=== PATIENT | female | born 1970 | race Caucasian/White ===

== ENCOUNTER 2018-11-02 12:08 | Emergency (ER) | payer SELFPAY ==
[2018-11-02 12:14] VITALS: BP 152/83; PULSE 52; RESP 18; TEMP 98.2; O2SAT 99
--- NOTE | 2018-11-02 12:40 | C.PDOC ---
History Of Present Illness 48 year old female presents to ED with complaint of right ankle/foot pain that began [employer]. Patient states that she mis-stepped and now has pain to the back of the foot. Patient states that pain is worse with movement. She denies weakness or numbness. R ANKLE /FOOT PAIN ONSET [employer]. PS MISSTEPPED NOW PAIN BACK OF FOOT. WORSE W MOV[facility] ENT. DENIES OTHER ASSOC SX EXAM NAD EXT R FOOT AROM WO DIFF, +ASSOC PAIN. NO SWELL DEFORM FOCAL TEND SKIN INTACT Time Seen by Provider: 11/02/18 12:17 Chief Complaint (Nursing): Lower Extremity Problem/Injury History Per: Patient History/Exam Limitations: no limitations Onset/Duration Of Symptoms: Hrs Current Symptoms Are (Timing): Still Present - Ankle/Foot Description Of Injury: Other (mis-stepped) Past Medical History Reviewed: Historical Data, Nursing Documentation, Vital Signs Vital Signs: Last Vital Signs Temp 98.2 F 11/02/18 12:10 Pulse 52 L 11/02/18 12:10 Resp 18 11/02/18 12:10 BP 152/83 H 11/02/18 12:10 Pulse Ox 99 11/02/18 12:10 Primary Care Provider: FAMILY PROVIDER,NO - Medical History PMH: No Chronic Diseases Surgical History: No Surg Hx Family History: States: Unknown Family Hx - Social History Hx Alcohol Use: No Hx Substance Use: No - Immunization History Hx Tetanus Toxoid Vaccination: No Hx Influenza Vaccination: No Hx Pneumococcal Vaccination: No Review Of Systems Except As Marked, All Systems Reviewed And Found Negative. Musculoskeletal: Positive for: Foot Pain (right ankle/foot pain) Physical Exam - Physical Exam Appears: Well, Non-toxic, No Acute Distress Skin: Normal Color, Warm, Dry, No Rash Head: Atraumatic, Normacephalic Neck: Normal ROM, Supple Chest: Symmetrical, No Deformity Cardiovascular: Rhythm Regular, No Murmur Respiratory: No Accessory Muscle Use, No Rales, No Rhonchi, No Wheezing Gastrointestinal/Abdominal: Soft, No Tenderness Extremity: Normal ROM, No Tenderness, Capillary Refill (<2 seconds), No Deformity, No Swelling, Other ( (+) associated pain to the right foot) Extremity: Bilateral: Normal Color And Temperature, Normal ROM Pulses: Left Dorsalis Pedis: Normal, Right Dorsalis Pedis: Normal Neurological/Psych: Oriented x3, Normal Speech, Normal Cognition, Normal Motor, Normal Sensation Gait: Steady ED Course And Treatment O2 Sat by Pulse Oximetry: 99 (in RA) Pulse Ox Interpretation: Normal - Other Rad r ankle X-Ray: Interpreted by Me (NEG) R FOOT X-Ray: Interpreted by Me (NEG) Progress Note: Right foot and right ankle x-ray ordered for patient. Patient given Motrin and tylenol. Disposition Counseled Patient/Family Regarding: Studies Performed, Diagnosis, Need For Followup, Rx Given - Disposition Referrals: Mary Ferrer DPM [Staff Provider] - Disposition: HOME/ ROUTINE Disposition Time: 12:47 Condition: IMPROVED Prescriptions: Acetaminophen [Tylenol Extra Strength] 2 tab PO Q6 #30 tablet Ibuprofen [Motrin] 600 mg PO Q6 #30 tab Instructions: Ankle Sprain (DC) Forms: [employer] (Korean) - Clinical Impression Clinical Impression: Achilles tendon sprain - Scribe Statement The provider has reviewed the documentation as recorded by the Scribe (Stefanie Dougherty) All medical record entries made by the Scribe were at my direction and personally dictated by me. I have reviewed the chart and agree that the record accurately reflects my personal performance of the history, physical exam, medical decision making, and the department course for this patient. I have also personally directed, reviewed, and agree with the discharge instructions and disposition. Orthopedic Care Application Of:: Ankle Air Cast
--- NOTE | 2018-11-02 13:43 | RAD ---
Date of service: 11/02/2018 PROCEDURE: Right Foot Radiographs. HISTORY: trauma COMPARISON: None. TECHNIQUE: 3 views obtained. FINDINGS: BONES: . No fracture. Os peroneum noted JOINTS: Normal. SOFT TISSUES: Normal. 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 Inferior calcaneal spur . Hammertoe orientation IMPRESSION: No fracture or lytic lesion. Other findings as above.
--- NOTE | 2018-11-02 14:00 | RAD ---
Date of service: 11/02/2018 PROCEDURE: Right Ankle Radiographs. HISTORY: TRAUMA COMPARISON: None available. TECHNIQUE: 3 views obtained. FINDINGS: BONES: No fracture appreciated. No lytic lesion appreciated JOINTS: No significant appearing arthrosis appreciated.. Ankle mortise maintained. Talar dome intact SOFT TISSUES: Ankle level soft tissue swelling. There is also some soft tissue swelling throughout the lower leg which may be long-standing for this patient. OTHER FINDINGS: Os peroneum and inferior calcaneal spur IMPRESSION: No fracture or lytic lesion. Other findings as above.
== END 2018-11-02 13:28 | disposition home or self-care (01) ==
LOC: C.ER 12:08
DX: S86.011A Strain of right Achilles tendon, initial encounter (principal); X58.XXXA Exposure to other specified factors, initial encounter